=== PATIENT | male | born 1985 | race Caucasian/White ===

== ENCOUNTER 2022-08-20 13:01 | Emergency (ER) | payer OTHER ==
--- NOTE | 2022-08-20 13:12 | ED Physician Documentation ---
PD HPI ABD PAIN - Stated complaint Stated Complaint: VOMITING ABD PX - Chief complaint Chief Complaint: Abd Pain - History obtained from History obtained from: Patient, Family - History of Present Illness Quality: Cramping, Aching Location: All over / everywhere Worsened by: Eating Associated symptoms: Vomiting. No: Fever, Nausea, Hematemesis, Diarrhea, Constipation, Melena, Hematochezia, Dysuria, Hematuria, Chest pain, Dizzy, Near syncope / syncope, Loss of appetite, Weight loss, Vaginal bleeding, Vaginal dc, Testicular pain, Other Similar symptoms before: Has not had sx before - Additional information Additional information: 37-year-old male with past medical history of colon cancer status post sigmoid colectomy and prior appendectomy presents with sudden onset of abdominal pain this morning followed by nausea and vomiting. Pain is generalized in the abdomen, I cannot localize it. He has had multiple episodes of nonbilious nonbloody vomiting. No diarrhea or constipation. He feels like he has moved his bowels and pass gas per normal. He has not had a fever or chills, no chest pain or difficulty breathing, no urinary symptoms. He went to the walk-in clinic earlier today who sent him to the ER due to the severity of his symptoms. Patient states he had colon cancer in 2018 but has had multiple colonoscopies And follow-up in the interim and has been doing very well. He is not currently on any treatment for this. Patient does smoke marijuana regularly but denies any history of cannabis hyperemesis or cyclic vomiting. He does drink alcohol, a couple of beers most nights, did drink last night but not excessively. He does not routinely use NSAIDs. Review of Systems Constitutional: reports: Reviewed and negative Nose: reports: Reviewed and negative Throat: reports: Reviewed and negative Cardiac: reports: Reviewed and negative Respiratory: reports: Reviewed and negative GI: reports: Abdominal Pain, Nausea, Vomiting. denies: Abdominal Swelling, Constipation, Diarrhea, Hematemesis, Bloody / black stool : reports: Reviewed and negative Skin: reports: Reviewed and negative Musculoskeletal: reports: Reviewed and negative Neurologic: reports: Reviewed and negative Psychiatric: reports: Reviewed and negative Endocrine: reports: Reviewed and negative PD PAST MEDICAL HISTORY - Past Medical History Past Medical History: Yes : Other (Colon cancer) - Past Surgical History Past Surgical History: Yes General: Appendectomy, Bowel surgery - Present Medications Home Medications: Ambulatory Orders Medication Instructions Recorded Confirmed Famotidine [Pepcid] 20 mg PO BID #60 tablet 08/20/22 HYDROcod/ACETAM 5/325 [[place] 5/325] 1 - 2 tablet PO Q6H PRN #14 tablet 08/20/22 Ondansetron Odt [Zofran Odt] 4 mg TL Q6H PRN #10 tablet 08/20/22 - Allergies Allergies/Adverse Reactions: Allergies Allergy/AdvReac Type Severity Reaction Status Date / Time No Known Drug Allergies Allergy Verified 08/20/22 13:11 PD ED PE NORMAL - Vitals Vital signs reviewed: Yes - General General: Alert and oriented X 3, Well developed/nourished, Other (Appears uncomfortable, restless in bed) - HEENT HEENT: Atraumatic, Pharynx benign - Cardiac Cardiac: RRR, No murmur - Respiratory Respiratory: No respiratory distress, Clear bilaterally - Abdomen Abdomen: Normal bowel sounds, Soft, Non distended, Other (Generalized tenderness without guarding.) - Male Male : Deferred - Back Back: No CVA TTP, No spinal TTP - Derm Derm: Normal color, Warm and dry, No rash - Neuro Neuro: Alert and oriented X 3 Eye Opening: Spontaneous Motor: Obeys Commands Verbal: Oriented GCS Score: 15 Results - Vitals Vitals: Vital Signs - 24 hr 08/20/22 08/20/22 08/20/22 13:08 14:38 16:00 Temperature 36.4 C L Heart Rate 46 L 38 L 32 L Respiratory 24 16 14 Rate Blood Pressure 143/81 H 142/97 H 142/102 H O2 Saturation 100 100 100 Oxygen O2 Source Room air - EKG (time done) No standard instances EKG releavant findings:: EKG personally interpreted by author of this note. Relevant findings are: Rate: Rate (enter#) (37), Angel Rhythm: Sinus bradycardia [place]: Normal Intervals: Normal [place] QRS: Normal Ischemia: Normal ST segments Other comments: Other comments (No brugada criteria) Compare to prior EKG: Old EKG unavailable Computer interpretation: Agree with computer - Labs Labs: Laboratory Tests 08/20/22 08/20/22 08/20/22 13:14 13:15 13:19 WBC 12.1 H RBC 4.86 Hgb 15.7 Hct 44.8 MCV 92.2 MCH 32.3 H MCHC 35.0 RDW 11.5 L Plt Count 282 MPV 9.3 Neut # (Auto) 10.4 H Lymph # (Auto) 1.2 L [place] # (Auto) 0.4 Eos # (Auto) 0.1 Baso # (Auto) 0.0 Absolute Nucleated RBC 0.00 Nucleated RBC % 0.0 Sodium Potassium Chloride Carbon Dioxide Anion Gap BUN Creatinine Estimated GFR (MDRD) Glucose Calcium Total Bilirubin AST ALT Alkaline Phosphatase Troponin I High Sens < 2.3 L Total Protein Albumin Globulin Albumin/Globulin Ratio Lipase Urine Color YELLOW Urine Clarity CLOUDY Urine pH 7.5 Ur Specific [place] 1.020 Urine Protein TRACE Urine Glucose (UA) NEGATIVE Urine Ketones 40 H Urine Occult Blood NEGATIVE Urine Nitrite NEGATIVE Urine Bilirubin NEGATIVE Urine Urobilinogen 0.2 (NORMAL) Ur Leukocyte Esterase NEGATIVE Urine RBC 0-5 Urine WBC 0-3 Ur Squamous Epith Cells NONE SEEN Amorphous Sediment Marked Urine Bacteria Few Ur Microscopic Review INDICATED Urine Culture Comments NOT INDICATED 08/20/22 08/20/22 13:19 13:19 WBC RBC Hgb Hct MCV MCH MCHC RDW Plt Count MPV Neut # (Auto) Lymph # (Auto) [place] # (Auto) Eos # (Auto) Baso # (Auto) Absolute Nucleated RBC Nucleated RBC % Sodium 139 Potassium 3.9 Chloride 103 Carbon Dioxide 24 Anion Gap 12.0 BUN 15 Creatinine 0.9 Estimated GFR (MDRD) 94 Glucose 140 H Calcium 9.7 Total Bilirubin 0.9 AST 26 ALT 17 Alkaline Phosphatase 43 Troponin I High Sens Total Protein 8.2 Albumin 5.2 Globulin 3.0 Albumin/Globulin Ratio 1.7 Lipase 32 Cancelled Urine Color Urine Clarity Urine pH Ur Specific [place] Urine Protein Urine Glucose (UA) Urine Ketones Urine Occult Blood Urine Nitrite Urine Bilirubin Urine Urobilinogen Ur Leukocyte Esterase Urine RBC Urine WBC Ur Squamous Epith Cells Amorphous Sediment Urine Bacteria Ur Microscopic Review Urine Culture Comments - Rads (name of study) No standard instances Relevant Findings:: Final report received PD Medical Decision Making - ED course Complexity details: reviewed results, re-evaluated patient, considered differential, d/w patient ED course: This is a 37-year-old male with past medical history of colon cancer as described in HPI who presented with nausea and vomiting which started this morning along with abdominal pain and cramping. On physical exam, he appears uncomfortable but has stable vital signs, chronic bradycardia, no focal abdominal pain on exam with active bowel tones. We obtained labs which are largely reassuring, his white blood cell count is somewhat elevated at 12, CBC otherwise stable, CMP including liver and kidney function and lipase is normal. Urinalysis not suggestive of infection. The patient was given IV morphine without relief followed by IV Dilaudid,as well as antiemetics. He continued to have pain. I therefore obtained a CT scan to evaluate for possible Bowel obstruction versus hepatobiliary issues or pancreatitis, versus enteritis or colitis. I also considered cannabis hyperemesis or cyclic vomiting syndrome As well as gastritis or PUD in the differential. The CT scan was reassuring, there is mild constipation, no other findings. His gallbladder and common bile duct appear normal, and there are no other acute findings on the CT scan. This in combination with the lab work is reassuring. The patient however continued to have crampy abdominal pain. This may be secondary to cannabis hyperemesis therefore I did give the patient 2 mg of IV Haldol as well as 50 mg of IV Toradol with some improvement in his symptoms. He was monitored and was able to tolerate some p.o. though had occasional vomiting but pain did improve. I did also obtain an EKG which showed sinus bradycardia, troponin is negative. The patient has no radiation of pain into the chest in any case. As he is feeling somewhat better, I do think he is stable for discharge home but have advised clear liquid diet and recommend that he refrain from using marijuana, Alcohol, or NSAIDs, and continue antiemetics and Tylenol as needed for pain. I reviewed return precautions in detail with the patient in recommended that he follow-up with his GI and consider endoscopy if symptoms persist. Departure - Departure Disposition: 01 Home, Self Care Clinical Impression: Vomiting Qualifiers: Vomiting type: unspecified Nausea presence: with nausea Qualified Code(s): R11.2 - Nausea with vomiting, unspecified Gastritis Qualifiers: Gastritis type: unspecified gastritis Chronicity: acute Gastritis bleeding: without bleeding Qualified Code(s): K29.00 - Acute gastritis without bleeding Condition: Good Instructions: ED PUD Vs Gastritis, ED Nausea Vomiting Prescriptions: HYDROcod/ACETAM 5/325 [[place] 5/325] 1 - 2 tablet PO Q6H PRN #14 tablet PRN Reason: Pain Famotidine [Pepcid] 20 mg PO BID #60 tablet Ondansetron Odt [Zofran Odt] 4 mg TL Q6H PRN #10 tablet PRN Reason: Nausea / Vomiting Comments: You presented with generalized abdominal pain though more so in the upper epigastric region. I suspect this is related to gastritis which is irritation in the upper part of the stomach, Or possibly cannabis hyperemesis syndrome which causes severe cramping and nausea and vomiting For a small number of people who use marijuana. Both of these can be irritated by particular foods and alcohol. I have given you a Prescription for nausea medication as well as an acid aircraft skin burnisher which is Also available [id number] as well. I recommend avoiding any alcohol use, avoiding marijuana and avoiding any high fat or spicy foods for the next couple of weeks. Eat a bland diet, starting with clear liquids and advancing as tolerated. Your labs today are reassuring and your CT did not show anything other than mild constipation. If you have new or worsening symptoms, Such as fever, increasing pain or continued inability to tolerate oral food or fluids, please return to the ER follow-up with your primary doctor. If symptoms are ongoing, they may consider an upper endoscopy to evaluate further.
[2022-08-20] MEDS ORDERED: MORPHINE 2 MG/ML CARPUJECT IVP STA (13:21)
[2022-08-20] MEDS ORDERED: ONDANSETRON 4 MG/2 ML VIAL IVP STA (13:21)
[2022-08-20 13:25] LABS: BASOPHILS % (AUTO) 0.2 %; EOSINOPHILS # (AUTO) 0.1 10^3/uL (0.0-0.7); EOSINOPHILS % (AUTO) 0.4 %; HCT - HEMATOCRIT 44.8 % (42.0-52.0); HGB - HEMOGLOBIN 15.7 g/dL (14.0-18.0); LYMPHOCYTES # (AUTO) 1.2 10^3/uL (1.5-3.5); LYMPHOCYTES % (AUTO) 9.9 %; MEAN CORPUSCULAR HEMOGLOBIN 32.3 pg (27.0-31.0); MEAN CORPUSCULAR VOLUME 92.2 fL (80.0-94.0); MEAN PLATELET VOLUME 9.3 fL (7.4-11.4); MONOCYTES # (AUTO) 0.4 10^3/uL (0.0-1.0); MONOCYTES % (AUTO) 3.5 %; NEUTROPHILS # (AUTO) 10.4 10^3/uL (1.5-6.6); NEUTROPHILS % (AUTO) 85.6 %; PLT - PLATELET COUNT 282 10^3/uL (130-450); RED BLOOD COUNT 4.86 10^6/uL (4.70-6.10); RED CELL DISTRIBUTION WIDTH 11.5 % (12.0-15.0); WHITE BLOOD COUNT 12.1 x10^3/uL (4.8-10.8)
[2022-08-20 13:26] LABS: BILIRUBIN,URINE NEGATIVE (NEGATIVE); GLUCOSE, URINE (UA) NEGATIVE (NEGATIVE); KETONES,URINE (UA) 40 mg/dL (NEGATIVE); LEUKOCYTE ESTERASE, URINE NEGATIVE (NEGATIVE); NITRITE,URINE NEGATIVE (NEGATIVE); OCCULT BLOOD,URINE NEGATIVE (NEGATIVE); PH,URINE 7.5 PH (5.0-7.5); PROTEIN,URINE TRACE mg/dL (NEGATIVE); UROBILINOGEN,URINE 0.2 (NORMAL) E.U./dL (NORMAL)
[2022-08-20 13:30] LABS: CLARITY,URINE CLOUDY (CLEAR)
[2022-08-20] MEDS ORDERED: SODIUM CHLORIDE 0.9% 1,000 ML IV STA (13:35)
[2022-08-20 13:39] LABS: ALBUMIN 5.2 g/dL (3.2-5.5); ALBUMIN/GLOBULIN RATIO 1.7 (1.0-2.2); BILIRUBIN,TOTAL 0.9 mg/dL (0.2-1.0); CALCIUM 9.7 mg/dL (8.5-10.3); CREATININE 0.9 mg/dL (0.6-1.2); POTASSIUM 3.9 mmol/L (3.5-5.0); TOTAL PROTEIN 8.2 g/dL (6.7-8.2)
[2022-08-20 13:43] LABS: AMORPHOUS SEDIMENT,UR Marked /LPF; BACTERIA,URINE Few /HPF (None Seen); RBC,URINE 0-5 /HPF (0-5); SQUAMOUS EPITHELIAL CELL,UR NONE SEEN (<= Few); WBC,URINE 0-3 /HPF (0-3)
[2022-08-20] MEDS ORDERED: iohexoL-300 100 ML VIAL ONE (13:54)
[2022-08-20] MEDS ORDERED: HYDROmorphone 1 MG/ML CARPUJECT IVP STA ×2 (13:57→16:13)
--- NOTE | 2022-08-20 14:52 | CT Report ---
PROCEDURE: ABDOMEN/PELVIS W INDICATIONS: concern for bowel obst, hx/o sigmoid colectomy CA CONTRAST: : 100ml omni 300 TECHNIQUE: After the administration of contrast, 5 mm thick sections acquired from the diaphragms to the symphys is. 5 mm thick coronal and sagittal reformats were acquired. For radiation dose reduction, the foll owing was used: automated exposure control, adjustment of mA and/or kV according to patient size. COMPARISON: FINDINGS: Image quality: Excellent. Lung bases and heart: Unremarkable. Liver: Unremarkable. Gallbladder and biliary tree: Unremarkable. Spleen: Unremarkable. Pancreas: Unremarkable. Adrenals: Unremarkable. Kidneys and ureters: Unremarkable. Bowel and peritoneum: No bowel distension. No pathologic free fluid. Moderate colonic stool without o bstruction. Postsurgical partial colectomy changes are present. Lymph nodes: No central or retroperitoneal adenopathy. Vessels: Unremarkable. PELVIS Reproductive organs: Unremarkable. Bladder: Unremarkable. Lymph nodes: Unremarkable. Bones: No aggressive osseous abnormality. Other: None. IMPRESSION: Prominent colonic stool without obstruction. Reviewed by: Sonia King MD on 08/20/2022 2:51 PM PDT Approved by: Sonia King MD on 08/20/2022 2:51 PM PDT Station ID: [id number]
[2022-08-20] MEDS ORDERED: HALOPERIDOL 5 MG/ML VIAL IVP STA (14:58)
[2022-08-20] MEDS ORDERED: KETOROLAC 30 MG/ML VIAL IVP STA (14:58)
[2022-08-20] MEDS ORDERED: iohexoL-300 100 ML VIAL IVP ONE (15:15)
[2022-08-20] MEDS ORDERED: MAG HYDROX/AL HYDROX/SIMETH 30 ML UDC PO STA (15:56)
[2022-08-20] MEDS ORDERED: FAMOTIDINE 20 MG/2 ML VIAL IVP STA (16:13)
[2022-08-20 17:42] VITALS: BP 133/93
== END 2022-08-20 17:42 | disposition home or self-care (01) ==
LOC: EDBD → ED 13:01
DX: K29.00 Acute gastritis without bleeding (principal)
CPT/HCPCS: 36415; 74177; 80053; 81001; 83690; 84484; 85025; 93005; 96374; 96375; 99285; A9270; J1170; Q9967; 81003; 87086